=== PATIENT | female | born 1980 | race Caucasian/White ===

== ENCOUNTER 2016-03-31 10:09 | Emergency (ER) | payer OTHER ==
[~2016-03-31] VITALS: Ht 165.1 cm; Wt 66.7 kg
[~2016-03-31 10:09] MED LIST: ALPRAZOLAM0.5 MG PO; ALPRAZOLAM1 MG PO; AMPICILLIN500 MG PO; ASACOL HD800 MG PO; ATIVAN1 MG PO; BENTYL 10 MG CA10 MG PO; BENTYL20 MG PO; CIPRO 250MG250 MG PO; CIPROFLOXACIN250 M2 PO; DICYCLOMINE HCL20 MG PO; DILAUDID 4 MG TA4 MG PO; DILAUDID2 M1 PO; DILAUDID2 MG PO; ERYTHROMYCIN250 MG PO; FIBRO-TABS1 TAB PO; FLEXERIL10 MG PO; HUMIRA (4040 MG/0.8 SC; HYDROCORTISONE25 MG PR; HYOSCYAMINE0.125 MG SL; LACTULOSE10 GM/15 M PO; LEVONORGESTREL1 TA1 PO; LEVSIN0.125 MG PO; LORAZEPAM1 MG PO; LYSINE1000 MG PO; MAGIC MOUTHWASH PO; METRONIDAZOLE500 MG PO; MIRALAX17 GM PO; NITROFURANTOIN100 M2 PO; ONDANSETRON HCL8 MG PO; ONDANSETRON HYDR4 MG PO; ONDANSETRON4 M1 PO; OXYCODONE5 M1 PO; OXYCODONE5 MG PO; PANTOPRAZOLE SO40 M1 PO; PANTOPRAZOLE SO40 MG PO; PAROXETINE HCL20 MG PO; PERCOCET 325 MG1 TA2 PO; POLYETHYLENE GL17 GM PO; PREDNISONE 10MG10 M1 PO; PREDNISONE10 M2 PO; PREDNISONE20 M1 PO; PROMETHAZINE HC25 M3 PO; PROMETHAZINE25 M1 PO; PROMETHAZINE50 MG PR; REGLAN10 MG PO; REMICADE I100 MG/10 IV; ROWASA4 GM/60 ML RC; ROXICODONE5 MG PO; STOOL SOFTENER100 MG PO; TESSALON PERLE100 MG PO; TRAMADOL HCL50 MG PO; UCERIS9 MG PO; VICODIN 300 MG-1 TAB PO; ZOFRAN 4 MG TABL4 MG PO; ZOFRAN 4MG ORALL4 MG PO; ZOFRAN ODT4 MG PO; ZOFRAN ODT4 MG SL; ZOFRAN4 M1 SL; ZOVIRAX5% TP; flexeril PO
--- NOTE | 2016-03-31 11:29 | ED GENERAL ADULT ---
History of Present Illness General Chief Complaint: Abdominal Pain/Flank Pain Stated Complaint: DISTENDED ABDOMEN,N/D Source: patient Exam Limitations: no limitations Vital Signs & Intake/Output Vital Signs & Intake/Output Vital Signs Date Time Temp Pulse Resp B/P Pulse O2 O2 Flow FiO2 Ox Delivery Rate 03/31 1415 97.6 104 16 137/85 97 Room Air 03/31 1210 97.9 103 16 128/92 99 Room Air 03/31 1117 Room Air 03/31 1012 97.6 125 18 143/95 97 Room Air Room Air Allergies Coded Allergies: Sulfa (Sulfonamide Antibiotics) (Severe, HIVES 09/15/15) naproxen (From Naprosyn) (Intermediate, HIVES 09/15/15) metoclopramide (From Reglan) (Severe, DYSTONIC REACTION 09/15/15) Triage Note: TRIAGE: 35 Y/O FEMALE PRESENTS C/O 8/10 ABDOMINAL, BACK, AND RIB PAIN X3 DAYS. PATIENT REPORTS WOKE UP THIS MORNING AND ABDOMEN WAS DISTENDED. HISTORY OF CHRONS. : No Patient currently breastfeeds: No HPI: Patient is a 35-year-old female with a past medical history of Crohn's ( diagnosed 2013) currently managed by Humira, and Gastroperesis, presents to [place] ED with chief complaint of abdominal pain. Onset of abdominal pain 3 days ago, patient describes the pain as sharp/ stabbing localized around lower abdomen area with a rating 8/10. Patient reports concomitant episodes of diarrhea about 10-12/day, which have now subsided to 5-8 episodes/day. Patient denies any blood in stool, however reports some foul smell. She also endorses nausea and one episode of vomiting while at the ED bathroom, but does deny any blood in vomit. She also reports decreased appetite and oral intake coinciding with abdominal pain. Patient reports being compliant on Humira therapy with last dose administered on saturday and her last flare up was about 3 months ago. She denies any fever, any change in diet, palpitation, chest pain, shortness of breath, dizziness, constipation, or dysuria. (NEETU RIGGINS,ISABELLA) Reconcile Medications adalimumab (Humira) 40 MG/0.8 ML SYR 40 MG SC Q2W CROHNS (Reported) Ondansetron (Zofran Odt) 4 MG TAB.RAPDIS 1 TAB SL TID PRN NAUSEA Oxycodone Hydrochloride (Oxycodone) 5 MG TAB 1 TAB PO TID PRN PAIN (Reported) PAROXETINE HCL (Paroxetine HCl) 20 MG TABLET 1 TAB PO DAILY ANXIETY (Reported ) Prednisone 10 MG TABLET 1 TAB PO DAILY CROHN'S TAKE 4 TABS FOR 3 DAYS THEN TAKE 3 TABS FOR 3 DAYS THEN TAKE 2 TABS FOR 3 DAYS THEN TAKE 1 TAB FOR 3 DAYS Triage Nurses Notes Reviewed? 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 No (ISABELLA DE ANDA MD) Medical History Any Pertinent Medical History? see below for history (BALDEV RIGGINS,VERONICA Sarabia) Review of Systems Review of Systems Constitutional: Reports: chills. Denies: diaphoresis, fever. EENTM: Denies: blurred vision, double vision, visual changes. Respiratory: Denies: cough, hemoptysis, orthopnea. Cardiovascular: Denies: chest pain, palpitations. GI: Reports: abdominal pain, bloating, diarrhea. Genitourinary: Denies: dysuria, frequency, hematuria. Musculoskeletal: Reports: back pain. Skin: Denies: jaundice, lesions, rash. Neurological/Psychological: Reports: anxiety. Denies: depressed, dementia. Hematologic/Endocrine: Denies: bleeding, polyuria, polydipsia. (ISABELLA DE ANDA MD) Physical Exam Physical Exam General Appearance: well developed/nourished, mild distress Head: atraumatic, normal appearance Eyes: Bilateral: PERRL, EOMI. Ears, Nose, Throat: normal pharynx, normal ENT inspection, hearing grossly normal Neck: normal inspection, supple, full range of motion Respiratory: normal breath sounds, chest non-tender, no respiratory distress Cardiovascular: tachycardia Gastrointestinal: abdomen is prominently distended.slightly hyperactive bowel sounds. tenderness to palpation more prominent on lower abdominal quadrants. No guarding or rebound tenderness noted. Back: normal inspection Extremities: normal inspection, normal capillary refill, normal range of motion, no edema Neurologic/Psych: no motor/sensory deficits, awake, alert, oriented x 3 Skin: intact, normal color, warm/dry, no rash noted. Lymphatic: no anterior cervical noé (NEETU RIGGINS,ISABELLA) Core Measures ACS in differential dx? No CVA/TIA Diagnosis: No Severe Sepsis Present: No Septic Shock Present: No (BALDEV RIGGINS,VERONICA Sarabia) Progress Differential Diagnoses I considered the following diagnoses in my evaluation of the patient: Bowel obstruction, Acute on chronic exercabation, infective gastroenteritis, Gastroperesis. Plan of Care: Orders Procedure Date/time Status Add-on Test (ER Only) 03/31 1243 Active CBC WITHOUT DIFFERENTIAL 03/31 1130 Complete BASIC ELECTROLYTES PLUS BUN&CR 03/31 1130 Complete HUMAN BETA HCG SCREEN 03/31 1127 Complete Laboratory Tests 03/31/16 1127: Anion Gap 11, Estimated GFR > 60, BUN/Creatinine Ratio 20.0, Total Beta HCG NEGATIVE, CBC w Diff NO MAN DIFF REQ, RBC 4.10 L, MCV 88.6, MCH 30.2, RDW 14.3, MPV 8.7, Gran % 58.4, Lymphocytes % 29.3, Monocytes % 8.8, Eosinophils % 3.3, Basophils % 0.2, Absolute Granulocytes 4.9, Absolute Lymphocytes 2.5, Absolute Monocytes 0.7 H, Absolute Eosinophils 0.3, Absolute Basophils 0, PUBS MCHC 34.1 Differential Diagnoses I considered the following diagnoses in my evaluation of the patient: Diagnostic Imaging: Viewed by Me: Radiology Read. Discussed w/RAD: Radiology Read. Radiology Impression: PATIENT: COREY DELEON PRESENT AGE: 35 PATIENT ACCOUNT NO: [id number] : 78 LOCATION: [facility] ORDERING PHYSICIAN: ISABELLA DE ANDA MD SERVICE DATE: 03/31/16-3558 EXAM TYPE: RAD - [id number] VIEWS EXAMINATION: XR ABDOMEN MULTIPLE VIEWS CLINICAL INDICATION: Bowel obstruction, distended abdomen, nausea vomiting COMPARISON: TECHNIQUE: Upright and supine KUB FINDINGS: There is no intra-abdominal free air. On the upright view of the abdomen there is an air-fluid level in the left upper quadrant. Overall, the bowel gas pattern is nonspecific. The visualized osseous structures are unremarkable. A few phleboliths identified within the pelvis. IMPRESSION: Nonspecific bowel gas pattern. DICTATED BY: CLARA BRAY MD DATE/TIME DICTATED:03/31/161442 MANAGER LVN:REY DATE/ TIME TRANSCRIBED:03/31/161442 CONFIDENTIAL, DO NOT COPY WITHOUT APPROPRIATE AUTHORIZATION. <Electronically signed in Other Vendor System> SIGNED BY: CLARA BRAY MD 03/31/161446 Initial ED EKG: none Comments: D/W DR. JOHN, PT STABLE FOR DISCHARGE. PT ADVISED THAT THE MORE PAIN MEDICATIONS THAT SHE TAKESM, THE MORE DISTENDED SHE WILL FEEL. (BALDEV RIGGINS,VERONICA Sarabia) Departure Departure Condition: Stable Referrals: ESTHER COHEN MD (PCP/Family) Departure Forms: Customer Survey General Discharge Information (NEETU RIGGINS,[facility]) Departure Disposition: HOME OR SELF CARE Clinical Impression Primary Impression: Abdominal pain, unspecified site Qualifiers: Abdominal location: generalized Qualified Code: R10.84 - Generalized abdominal pain Prescriptions: Current Visit Scripts Prednisone 1 TAB PO DAILY #30 TAB TAKE 4 TABS FOR 3 DAYS THEN TAKE 3 TABS FOR 3 DAYS THEN TAKE 2 TABS FOR 3 DAYS THEN TAKE 1 TAB FOR 3 DAYS Ondansetron (Zofran Odt) 1 TAB SL TID PRN NAUSEA #10 TAB Resident Co-Sign Statement Statement: ED Attending supervision documentation- [X] I saw and evaluated the patient. I have also reviewed all the pertinent lab results and diagnostic results. I agree with the findings and the plan of care as documented in the Resident's documentation. [X] I have reviewed the ED Record and agree with the Resident's documentation. [] Additions or exceptions (if any) to the Resident's note and plan are summarized below: [Patient presents with increasing abdominal pain and abdominal distention. Patient suffers from Crohn's disease and states that she always had a little bit of abdominal pain but over the past few days it has increased to the point that her oxycodone isn't even helping the pain. The pain is 10 out of 10 and is constant. The pain is diffuse and there is no radiation outside of the abdominal area. There are no aggravating or mitigating factors. Positive nausea and patient vomited once here in the emergency department. This when she woke up her abdomen was distended. Patient comes in for evaluation. On exam she has voluntary guarding but positive bowel sounds. There is no rebound. Her x-ray does not show any evidence of obstruction. Her lab work is all at her baseline. Case was discussed with gastroenterology states that the patient is stable for discharge. The lab results as x-rays have been discussed with the patient. Questions have been answered. Patient is stable for discharge.] (BALDEV RIGGINS,VERONICA Sarabia) Critical Care Note Critical Care Note Critical Care Time: non-applicable (BALDEV RIGGINS,VERONICA Sarabia)
[2016-03-31 11:55] LABS: ABSOLUTE BASOPHIL COUNT 0 /CUMM (0.0-0.2); ABSOLUTE EOSINOPHIL COUNT 0.3 /CUMM (0.0-0.7); ABSOLUTE GRANULOCYTE CT 4.9 /CUMM (1.4-6.5); ABSOLUTE LYMPH COUNT 2.5 /CUMM (1.2-3.4); ABSOLUTE MONOCYTE COUNT 0.7 /CUMM (0.10-0.60); BASOPHIL % 0.2 % (0.0-2.0); EOSINOPHIL % 3.3 % (0-5); GRANULOCYTE % 58.4 % (42.2-75.2); HEMATOCRIT 36.3 % (37-47); MEAN CORPUSCULAR HGB 30.2 PG (27.0-31.0); MEAN CORPUSCULAR HGB CONC 34.1 G/DL (33.0-37.0); MEAN CORPUSCULAR VOLUME 88.6 FL (81.0-99.0); MEAN PLATELET VOLUME 8.7 FL (7.4-10.4); PLATELET COUNT 277 /CUMM (130-400); RBC DISTRIBUTION WIDTH 14.3 % (11.5-14.5); WHITE BLOOD CELL COUNT 8.4 /CUMM (4.8-10.8)
--- NOTE | 2016-03-31 14:47 | RADIOLOGY REPORT ---
EXAMINATION: XR ABDOMEN MULTIPLE VIEWS CLINICAL INDICATION: Bowel obstruction, distended abdomen, nausea vomiting COMPARISON: 09/15/2015 TECHNIQUE: Upright and supine KUB FINDINGS: There is no intra-abdominal free air. On the upright view of the abdomen there is an air-fluid level in the left upper quadrant. Overall, the bowel gas pattern is nonspecific. The visualized osseous structures are unremarkable. A few phleboliths identified within the pelvis. IMPRESSION: Nonspecific bowel gas pattern.
[2016-03-31] MEDS ORDERED: ZOFRAN ODT4 M1 SL (15:34)
[2016-03-31] MEDS ORDERED: PREDNISONE10 M2 PO (15:34)
[2016-03-31 15:39] VITALS: BP 136/82
== END 2016-03-31 15:40 ==
LOC: ERH 10:09
PROVIDERS: Student in an Organized Health Care Education/Training Program
DX: R10.31 Right lower quadrant pain (principal); R10.32 Left lower quadrant pain
CPT/HCPCS: 74020; 82436; 96361; 96374; 96375; 96376; J2405

== ENCOUNTER 2016-09-25 16:53 | Emergency (ER) | payer OTHER ==
[~2016-09-25] VITALS: Ht 165.1 cm; Wt 72.6 kg
[~2016-09-25 16:53] MED LIST changes: +BUDESONIDE EC3 MG PO; +CYCLOBENZAPRINE5 M2 PO; -HUMIRA (4040 MG/0.8 SC; +HUMIRA PEN40 MG/0.8 SC; +LIALDA1.2 G1 PO; +OXYCODONE HCL5 M1 PO; +PAROXETINE HCL20 M1 PO; -PAROXETINE HCL20 MG PO; +ZOFRAN ODT4 M1 SL
[2016-09-25 17:33] LABS: ABSOLUTE BASOPHIL COUNT 0 /CUMM (0.0-0.2); ABSOLUTE EOSINOPHIL COUNT 0.1 /CUMM (0.0-0.7); ABSOLUTE GRANULOCYTE CT 6.8 /CUMM (1.4-6.5); ABSOLUTE LYMPH COUNT 1.9 /CUMM (1.2-3.4); ABSOLUTE MONOCYTE COUNT 0.3 /CUMM (0.10-0.60); BASOPHIL % 0 % (0.0-2.0); EOSINOPHIL % 1.6 % (0-5); GRANULOCYTE % 74.5 % (42.2-75.2); HEMATOCRIT 36.7 % (37-47); MEAN CORPUSCULAR HGB CONC 33.5 G/DL (33.0-37.0); MEAN CORPUSCULAR VOLUME 89.5 FL (81.0-99.0); MEAN PLATELET VOLUME 9.1 FL (7.4-10.4); PLATELET COUNT 356 /CUMM (130-400); RBC DISTRIBUTION WIDTH 13.4 % (11.5-14.5); WHITE BLOOD CELL COUNT 9.1 /CUMM (4.8-10.8)
--- NOTE | 2016-09-25 20:53 | ED GI/GU/ABDOMINAL COMPLAINT ---
History of Present Illness General Chief Complaint: Abdominal Pain/Flank Pain Stated Complaint: ABD PAIN Source: patient, old records Exam Limitations: no limitations Vital Signs & Intake/Output Vital Signs & Intake/Output Vital Signs Date Time Temp Pulse Resp B/P B/P Pulse O2 O2 Flow FiO2 Mean Ox Delivery Rate 09/25 1920 91 18 111/71 100 Room Air 09/25 1700 97.7 90 18 152/89 100 Room Air Allergies Coded Allergies: Sulfa (Sulfonamide Antibiotics) (Severe, HIVES 09/15/15) naproxen (From Naprosyn) (Intermediate, HIVES 09/15/15) metoclopramide (From Reglan) (Severe, DYSTONIC REACTION 09/15/15) Reconcile Medications Adalimumab (Humira Pen) 40 MG/0.8 ML PEN.IJ.KIT 1 SYR SC Q2W CROHNS (Reported ) Budesonide (Budesonide EC) 3 MG CAPDR...ER 3 CAP PO DAILY CHRONS (Reported) Cyclobenzaprine HCl 5 MG TABLET 1 TAB PO QPMP PRN MUSCLE (Reported) Mesalamine (Lialda) 1.2 GRAM TABLET.DR 4 TAB PO DAILY CHRONS (Reported) Ondansetron (Zofran Odt) 4 MG TAB.RAPDIS 1 TAB SL TID PRN NAUSEA Oxycodone HCl 5 MG TABLET 1 TAB PO TIDPRN PRN PAIN (Reported) Paroxetine HCl 20 MG TABLET 1 TAB PO DAILY ANXIETY (Reported) Triage Note: PT TO ED FOR ABD PAIN AND DISTENTION, +NAUSEA, DENIES VOMITING. Triage Nurses Notes Reviewed? 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 Head: Normocephalic, atraumatic. Eyes: Normal inspection bilaterally Ears: Normal inspection bilaterally Nose: Normal inspection Throat/mouth : Moist mucosa Neck: Supple, full range of motion, no goiter Heart: Regular rate and rhythm, no murmurs rubs or gallops Lungs: Clear to auscultation bilaterally with normal air entry Chest: Nontender Back: Normal range of motion Abdomen: Protrudent friend, Soft, diffuse tenderness worst in the lower quadrants bilaterally (patient states that she typically has diffuse abdominal tenderness secondary to a history of Crohn's disease), nondistended, normal bowel sounds Extremities: Normal range of motion grossly, equal radial pulses, no cyanosis clubbing or edema Neurologic: Cranial nerves grossly intact, speech is clear Skin: warm and dry Psychiatric: Calm, cooperative, no apparent delusions or hallucinations Progress Plan of Care: Orders Procedure Date/time Status LACTIC ACID 09/25 2000 Active LACTIC ACID 09/25 1700 Complete COMPREHENSIVE METABOLIC PANEL 09/25 1700 Complete CBC WITHOUT DIFFERENTIAL 09/25 1700 Complete Laboratory Tests 09/25/161921: CSF LDH Cancelled 09/25/161921: CSF WBC Cancelled, CSF RBC Cancelled, CSF Comment Cancelled 09/25/161716: Anion Gap 15, Estimated GFR > 60, BUN/Creatinine Ratio 23.3, Glucose 100 H, Lactic Acid 1.8, Calcium 10.6 H, Total Bilirubin 0.4, AST 22, ALT 29, Alkaline Phosphatase 115, Total Protein 8.0, Albumin 4.6, Globulin 3.4, Albumin/Globulin Ratio 1.4, CBC w Diff NO MAN DIFF REQ, RBC 4.10 L, MCV 89.5, MCH 30.0, RDW 13.4 , MPV 9.1, Gran % 74.5, Lymphocytes % 20.7, Monocytes % 3.2, Eosinophils % 1.6, Basophils % 0 L, Absolute Granulocytes 6.8 H, Absolute Lymphocytes 1.9, Absolute Monocytes 0.3, Absolute Eosinophils 0.1, Absolute Basophils 0, PUBS MCHC 33.5 Microbiology 09/25 1921 [facility]: CSF Culture - CAN Cancelled: Cancelled via OE: WRONG PT 09/25 1921 [facility]: Gram Stain - CAN Cancelled: Cancelled via OE: WRONG PT Departure Departure Condition: Stable Referrals: TJ PROCTOR MD (PCP/Family) Departure Forms: Customer Survey General Discharge Information Departure Departure Condition: Stable Referrals: TJ PROCTOR MD (PCP/Family) Departure Forms: Customer Survey General Discharge Information
--- NOTE | 2016-09-25 20:55 | ED GI/GU/ABDOMINAL COMPLAINT ---
History of Present Illness General Chief Complaint: Abdominal Pain/Flank Pain Stated Complaint: ABD PAIN Source: patient Exam Limitations: no limitations Vital Signs & Intake/Output Vital Signs & Intake/Output Vital Signs Date Time Temp Pulse Resp B/P B/P Pulse O2 O2 Flow FiO2 Mean Ox Delivery Rate 09/25 2214 93 18 135/74 100 Room Air 09/25 1920 91 18 111/71 100 Room Air 09/25 1700 97.7 90 18 152/89 100 Room Air ED Intake and Output 09/26 0000 09/25 1200 Intake Total Output Total Balance Patient 160 lb Weight Weight Reported by Patient Measurement Method Allergies Coded Allergies: Sulfa (Sulfonamide Antibiotics) (Severe, HIVES 09/15/15) naproxen (From Naprosyn) (Intermediate, HIVES 09/15/15) metoclopramide (From Reglan) (Severe, DYSTONIC REACTION 09/15/15) Reconcile Medications Budesonide (Budesonide EC) 3 MG CAPDR...ER 3 CAP PO DAILY CROHNS (Reported) Cyclobenzaprine HCl 5 MG TABLET 1 TAB PO QPMP PRN MUSCLE (Reported) Dicyclomine Hydrochloride (Bentyl) (Unknown Strength) CAPSULE (Unknown Dose) PO QAM GI (Reported) Hyoscyamine Sulfate (Levsin-Sl) 0.125 MG TAB.SUBL 1 TAB SL QPM GI (Reported) Lidocaine 5 % ADH..PATCH 1-2 PAT TOP QPM PAIN (Reported) Lysine 500 MG TABLET 1 TAB PO DAILY SUPPLEMENT (Reported) Mesalamine (Lialda) 1.2 GRAM TABLET.DR 2 TAB PO DAILY CROHNS (Reported) Multivitamin (Multi-Day Vitamins) 1 EACH TABLET 1 TAB PO DAILY SUPPLEMENT ( Reported) Multivitamin With Minerals (Hair, Skin & Nails) 1 EACH TABLET 1 TAB PO DAILY SUPPLEMENT (Reported) Ondansetron (Zofran Odt) 4 MG TAB.RAPDIS 1 TAB SL TID PRN NAUSEA Oxycodone HCl 5 MG TABLET 1 TAB PO TIDPRN PRN PAIN (Reported) Pantoprazole Sodium 40 MG TABLET.DR 1 TAB PO PRN GI (Reported) Triage Note: PT TO ED FOR ABD PAIN AND DISTENTION, +NAUSEA, DENIES VOMITING. Triage Nurses Notes Reviewed? yes ? n Is pt currently ? No HPI: Patient presents for evaluation of bilateral lower quadrant abdominal tenderness that began about 3 days ago. In addition the patient states that she has "felt sick and nauseous" over the days as well. She has been suffering from low back pain for the past 2 weeks and saw her primary care physician for the back pain but was told to go to the emergency department because of her abdominal pain. She had chest pain transiently 2 days ago that resolved with Tums. She denies any associated fever, cough, cold symptoms, vomiting, dysuria, vaginal issues, bloody diarrhea or melena. She denies the possibility of secondary to a tubal ligation. She began having diarrhea this afternoon here in the emergency department (3 episodes) after a normal bowel movement this morning. Past History Travel History Traveled to [facility] past 21 day No Medical History Any Pertinent Medical History? 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 No Review of Systems Review of Systems Constitutional: Reports: no symptoms. EENTM: Reports: no symptoms. Respiratory: Reports: no symptoms. Cardiovascular: Reports: no symptoms. GI: Reports: see HPI. Genitourinary: Reports: no symptoms. Musculoskeletal: Reports: no symptoms. Skin: Reports: no symptoms. Neurological/Psychological: Reports: no symptoms. Hematologic/Endocrine: Reports: no symptoms. Immunologic/Allergic: Reports: no symptoms. All Other Systems: Reviewed and Negative Physical Exam Physical Exam Gastrointestinal: see below Comments: Gen.: Well-nourished, well-developed, no acute respiratory distress. Head: Normocephalic, atraumatic. Eyes: Normal inspection bilaterally Ears: Normal inspection bilaterally Nose: Normal inspection Throat/mouth : Moist mucosa Neck: Supple, full range of motion, no goiter Heart: Regular rate and rhythm, no murmurs rubs or gallops Lungs: Clear to auscultation bilaterally with normal air entry Chest: Nontender Back: Normal range of motion Abdomen: Protrudent friend, Soft, diffuse tenderness worst in the lower quadrants bilaterally (patient states that she typically has diffuse abdominal tenderness secondary to a history of Crohn's disease), nondistended, normal bowel sounds Extremities: Normal range of motion grossly, equal radial pulses, no cyanosis clubbing or edema Neurologic: Cranial nerves grossly intact, speech is clear Skin: warm and dry Psychiatric: Calm, cooperative, no apparent delusions or hallucinations Core Measures ACS in differential dx? No Severe Sepsis Present: No Septic Shock Present: No Progress Differential Diagnosis: appendicitis, biliary colic, bowel obstruction, cholecystitis, diverticulitis, ischemic bowel, inflamm bowel dis, pancreatitis, PUD/GERD Plan of Care: Orders Procedure Date/time Status LACTIC ACID 09/25 2000 Complete LACTIC ACID 09/25 1700 Complete COMPREHENSIVE METABOLIC PANEL 09/25 1700 Complete CBC WITHOUT DIFFERENTIAL 09/25 1700 Complete Laboratory Tests 09/25/16 2016: Lactic Acid 1.0 09/25/161921: CSF LDH Cancelled 09/25/161921: CSF WBC Cancelled, CSF RBC Cancelled, CSF Comment Cancelled 09/25/161716: Anion Gap 15, Estimated GFR > 60, BUN/Creatinine Ratio 23.3, Glucose 100 H, Lactic Acid 1.8, Calcium 10.6 H, Total Bilirubin 0.4, AST 22, ALT 29, Alkaline Phosphatase 115, Total Protein 8.0, Albumin 4.6, Globulin 3.4, Albumin/Globulin Ratio 1.4, CBC w Diff NO MAN DIFF REQ, RBC 4.10 L, MCV 89.5, MCH 30.0, RDW 13.4 , MPV 9.1, Gran % 74.5, Lymphocytes % 20.7, Monocytes % 3.2, Eosinophils % 1.6, Basophils % 0 L, Absolute Granulocytes 6.8 H, Absolute Lymphocytes 1.9, Absolute Monocytes 0.3, Absolute Eosinophils 0.1, Absolute Basophils 0, PUBS MCHC 33.5 Microbiology 09/25 1921 [facility]: CSF Culture - CAN Cancelled: Cancelled via OE: WRONG PT 09/25 1921 [facility]: Gram Stain - CAN Cancelled: Cancelled via OE: WRONG PT Diagnostic Imaging: Discussed w/RAD: CT Scan. Initial ED EKG: none Comments: 09/26/2016 1:27:29 AM I have updated Oriana on her test results. Departure Departure Disposition: HOME OR SELF CARE Condition: Stable Clinical Impression Primary Impression: Appendicitis epiploica Referrals: TJ PROCTOR MD (PCP/Family) Additional Instructions: Percocet as needed for pain. Follow-up with your GI specialist this week for reevaluation. Notify your primary care doctor of this emergency department visit treatment plan. Return if any concerns or sudden worsening. Please note that there might be incidental findings in your evaluation that are unrelated to the current emergency department visit. Please notify your primary care doctor about this emergency department visit in order to obtain and review all of the testing performed so that these incidental findings can be monitored as needed. If you had an x-ray performed, please understand that some fractures may not be seen on the initial set of x-rays. If your symptoms persist you might need a repeat set of x-rays to check for such a fracture. If you had a laceration evaluated, please understand that foreign bodies such as glass or wood may not be visible to the naked eye or on plain x-rays. If the wound becomes red, swollen, increasingly more painful or if there is any drainage from the wound, please have it reevaluated by a physician for the possibility of a retained foreign body. If you're unable to follow up as outlined in the discharge instructions please return to the emergency department. Thank you for choosing the [facility] Emergency Department for your care. It was a pleasure to serve you today. Willie oHlliday M.D. [facility] Departure Forms: Customer Survey General Discharge Information Prescriptions: Current Visit Scripts Oxycodone HCl/Acetaminophen (Percocet 5-325 MG Tablet) 1-2 TAB PO Q6P PRN pain #16 TAB
[2016-09-25] MEDS ORDERED: BENTYL10 M1 PO (20:59)
[2016-09-25] MEDS ORDERED: LEVSIN-SL0.125 MG SL (21:00)
[2016-09-25] MEDS ORDERED: LIDOCAINE1 EACH TOP (21:00)
[2016-09-25] MEDS ORDERED: PANTOPRAZOLE SO40 M1 PO (21:00)
[2016-09-25] MEDS ORDERED: MULTI-DAY VITA1 EACH PO (21:02)
[2016-09-25] MEDS ORDERED: LYSINE500 M1 PO (21:02)
[2016-09-25] MEDS ORDERED: HAIR, SKIN & N1 EACH PO (21:03)
[2016-09-25 22:14] VITALS: BP 135/74
--- NOTE | 2016-09-26 01:09 | CT SCAN REPORT ---
EXAMINATION: CT ABDOMEN AND PELVIS WITH CONTRAST CLINICAL INFORMATION: Bilateral lower abdominal pain. History of Crohn's. COMPARISON: 09/14/2016 and 12/26/2014. TECHNIQUE: Multidetector volumetric imaging was performed of the abdomen and pelvis after the IV administration of 94 mL of Optiray 320 intravenous contrast. Oral contrast material was administered. Sagittal and coronal reformatted images were obtained on the technologist's workstation. DLP: 480 mGy-cm FINDINGS: LUNG BASES: The visualized lung bases are unremarkable. LIVER, GALLBLADDER, AND BILIARY TREE: The liver is normal in size, shape, and attenuation. No focal hepatic lesion or biliary ductal dilatation is present. The gallbladder is unremarkable with no evidence of radiopaque gallstones, gallbladder wall thickening, or obvious pericholecystic inflammatory changes. PANCREAS: Unremarkable. SPLEEN: Unremarkable. ADRENAL GLANDS: Unremarkable. KIDNEYS AND URETERS: The kidneys are normal in size, shape, and attenuation. No hydronephrosis, hydroureter, or calculi seen. No perinephric stranding. BLADDER: Unremarkable. GASTROINTESTINAL TRACT: Stomach, small bowel, and colon are normal in caliber. No appreciable bowel wall thickening or surrounding inflammatory changes. Appendix is unremarkable. No intraperitoneal free fluid. As seen on image 57/91 of series 2, there is a small ovoid focus of thin peripheral soft tissue attenuation and central fat attenuation, consistent with a torsed epiploic appendage. This was present on the prior study from 09/14/2016 but was not present on the study prior to that. ABDOMINAL WALL: Small fat-containing ventral abdominal hernia. No bowel involvement. LYMPH NODES: Numerous small subcentimeter mesenteric and retroperitoneal lymph nodes are identified. No pathologic adenopathy. VASCULAR: Minimal calcific atherosclerosis is present in the abdominal aorta. No aneurysmal dilatation. PELVIC VISCERA: The uterus and adnexa are unremarkable. OSSEOUS STRUCTURES: Minimal degenerative disc disease in the lumbar spine. No acute osseous abnormalities. IMPRESSION: 1. Small focus of thin soft tissue attenuation around a fat density epiploic appendage on the distal descending colon, most compatible with a torsed epiploic appendage (epiploic appendagitis). This was present on the prior study, but was not present previously. 2. Otherwise, no evidence of acute intra-abdominal or intrapelvic abnormalities. Specifically, no evidence of active terminal ileitis or colitis.
[2016-09-26] MEDS ORDERED: PERCOCET 5-3251 EACH PO (01:29)
== END 2016-09-26 01:45 ==
LOC: ERH 16:53
PROVIDERS: Emergency Medicine
DX: Q43.8 Other specified congenital malformations of intestine (principal); R07.9 Chest pain, unspecified
CPT/HCPCS: 87070; 87205; 74177; 96374; 96375; J2550

== ENCOUNTER 2017-08-11 10:05 | Emergency (ER) | payer OTHER ==
[~2017-08-11] VITALS: Ht 165.1 cm; Wt 67.1 kg
[~2017-08-11 10:05] MED LIST changes: +BENTYL10 M1 PO; +HAIR, SKIN & N1 EACH PO; +IBUPROFEN800 M1 PO; +LEVSIN-SL0.125 MG SL; +LIDOCAINE1 EACH TOP; +LYSINE500 M1 PO; +MEDROL4 M2 PO; +MULTI-DAY VITA1 EACH PO; +PERCOCET 5-3251 EACH PO
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
[2017-08-11 12:36] VITALS: BP 126/79
== END 2017-08-11 12:48 ==
LOC: ERH 10:05
DX: M54.41 Lumbago with sciatica, right side (principal)
CPT/HCPCS: 96372; J1100; J1885